=== PATIENT | female | born 1990 | race Caucasian/White ===

== ENCOUNTER 2021-05-15 00:17 | Outpatient (CLI) | payer OTHER ==
[~2021-05-15 00:17] MED LIST: COLACE 100MG C100 MG PO
== END 2021-05-15 03:33 | disposition home or self-care (01) ==
LOC: GENOP 00:17
DX: O47.03 False labor before 37 completed weeks of gestation, third trimester (principal); Z3A.35 35 weeks gestation of pregnancy
CPT/HCPCS: G0463

== ENCOUNTER 2021-05-16 21:51 | Outpatient (CLI) | payer OTHER | END 2021-05-16 23:46 | disposition home or self-care (01) | LOC: GENOP 21:51 | DX: O99.891 Other specified diseases and conditions complicating pregnancy (principal); N89.8 Other specified noninflammatory disorders of vagina; O47.03 False labor before 37 completed weeks of gestation, third trimester; O99.513 Diseases of the respiratory system complicating pregnancy, third trimester; J45.990 Exercise induced bronchospasm; Z3A.35 35 weeks gestation of pregnancy | CPT/HCPCS: 81001; 83518; G0463 ==

== ENCOUNTER → 2021-05-20 | Outpatient (CLI) | payer OTHER | LOC: GENOP 20:35 | DX: O47.03 False labor before 37 completed weeks of gestation, third trimester (principal); O99.513 Diseases of the respiratory system complicating pregnancy, third trimester; J45.909 Unspecified asthma, uncomplicated; Z3A.36 36 weeks gestation of pregnancy | CPT/HCPCS: G0463 ==

== ENCOUNTER 2021-05-27 10:46 | Outpatient (CLI) | payer OTHER ==
[2021-05-27 12:29] LABS: RED BLOOD COUNT 4.41 M/UL (4.00-5.10); WHITE BLOOD COUNT 15.1 K/UL (4.5-11.0)
== END 2021-05-27 19:47 | disposition home or self-care (01) ==
LOC: GENOP 10:46
PROVIDERS: Obstetrics & Gynecology
DX: O47.1 False labor at or after 37 completed weeks of gestation (principal); Z3A.37 37 weeks gestation of pregnancy; O34.219 Maternal care for unspecified type scar from previous cesarean delivery; O99.513 Diseases of the respiratory system complicating pregnancy, third trimester; O99.353 Diseases of the nervous system complicating pregnancy, third trimester; J45.909 Unspecified asthma, uncomplicated; G43.909 Migraine, unspecified, not intractable, without status migrainosus; Z20.822 Contact with and (suspected) exposure to COVID-19
CPT/HCPCS: 81001; 85025; 96361; J7120; U0002

== ENCOUNTER 2021-06-03 16:31 | Outpatient (CLI) | payer OTHER | END 2021-06-03 19:19 | disposition home or self-care (01) | LOC: GENOP 16:31 | DX: O47.03 False labor before 37 completed weeks of gestation, third trimester (principal); O34.219 Maternal care for unspecified type scar from previous cesarean delivery; O99.513 Diseases of the respiratory system complicating pregnancy, third trimester; O99.353 Diseases of the nervous system complicating pregnancy, third trimester; J45.998 Other asthma; G43.909 Migraine, unspecified, not intractable, without status migrainosus; Z3A.36 36 weeks gestation of pregnancy; Z88.0 Allergy status to penicillin; Z88.1 Allergy status to other antibiotic agents | CPT/HCPCS: 59025; 81001 ==

== ENCOUNTER 2021-06-10 05:27 | Inpatient (IN) | payer OTHER ==
[~2021-06-10] VITALS: Ht 172.7 cm; Wt 93.0 kg
[2021-06-10] MEDS ORDERED: PRENATABS FA T1 EACH PO (06:13)
[2021-06-10] MEDS ORDERED: PRILOSEC OTC20 MG PO (06:14)
[2021-06-10 07:13] LABS: HEMOGLOBIN 11.4 gm/dl (12.3-15.3); RED BLOOD COUNT 4.27 M/UL (4.00-5.10); WHITE BLOOD COUNT 12.2 K/UL (4.5-11.0)
[2021-06-10 07:31] LABS: BUN/CREATININE RATIO 17 (0-10)
[2021-06-10] MEDS ORDERED: IBUPROFEN600 MG PO (08:30)
[2021-06-10] MEDS ORDERED: COLACE 100MG C100 MG PO (08:30)
[2021-06-10] MEDS ORDERED: HYDROCODON-ACE1 EAC6 PO (08:36)
[2021-06-11 06:32] LABS: HEMOGLOBIN 10.2 gm/dl (12.3-15.3)
== END 2021-06-12 14:47 | disposition home or self-care (01) | DRG 788 ==
LOC: OB 05:27
PROVIDERS: ADMIT Obstetrics & Gynecology
PROC: 4A1HXCZ Monitoring of Products of Conception, Cardiac Rate, External Approach (ICD-10-PCS; 2021-06-10)
PROC: 10D00Z1 Extraction of Products of Conception, Low, Open Approach (ICD-10-PCS; principal; 2021-06-10 07:30)
DX: O34.211 Maternal care for low transverse scar from previous cesarean delivery (principal); Z3A.39 39 weeks gestation of pregnancy; Z37.0 Single live birth; Z20.822 Contact with and (suspected) exposure to COVID-19; Z90.49 Acquired absence of other specified parts of digestive tract; Z83.3 Family history of diabetes mellitus; Z81.8 Family history of other mental and behavioral disorders; Z82.5 Family history of asthma and other chronic lower respiratory diseases; Z82.49 Family history of ischemic heart disease and other diseases of the circulatory system; Z80.0 Family history of malignant neoplasm of digestive organs; Z88.1 Allergy status to other antibiotic agents; Z88.0 Allergy status to penicillin
CPT/HCPCS: 36415; 80053; 81001; 82800; 85014; 85018; 85025; 90471; 90715; C9113; J1885; J2274; J2370; J2405; J2590; J3010; J3370; J7070; J7120

== ENCOUNTER → 2022-01-19 | Outpatient (CLI) | payer OTHER ==
[~2022-01-19] MED LIST changes: +HYDROCODON-ACE1 EAC6 PO; +IBUPROFEN600 MG PO; +PRENATABS FA T1 EACH PO; +PRILOSEC OTC20 MG PO
== END ==
LOC: MRI 13:38
DX: R51.9 Headache, unspecified (principal)
CPT/HCPCS: 70553; A9577